=== PATIENT | male | born 1995 ===

== ENCOUNTER 2020-12-11 10:24 | Emergency (ER) ==
[~2020-12-11] VITALS: Ht 188 cm; Wt 104.5 kg
== END 2020-12-11 13:45 | disposition left against medical advice (07) ==
LOC: COL.ER 10:24
DX: M25.561 Pain in right knee (principal); M25.562 Pain in left knee; M25.572 Pain in left ankle and joints of left foot; M79.89 Other specified soft tissue disorders; Z88.0 Allergy status to penicillin; Z88.5 Allergy status to narcotic agent; Z88.1 Allergy status to other antibiotic agents; V29.9XXA Motorcycle rider (driver) (passenger) injured in unspecified traffic accident, initial encounter